=== PATIENT | female | born 1980 | race Caucasian/White ===

== ENCOUNTER 2019-10-02 13:43 | Emergency (ER) | payer SELFPAY ==
[2019-10-02 14:04] VITALS: O2SAT 99
[2019-10-02] MEDS ORDERED: IPRATROPIUM/ALBUTEROL 3 ML VIAL NEB ONE (14:32)
[2019-10-02] MEDS ORDERED: predniSONE 20 MG TAB PO ONE (14:33)
--- NOTE | 2019-10-02 14:51 | RAD ---
EXAM DESCRIPTION: Chest,2 Views CLINICAL HISTORY: 39 years Female, COUGH COMPARISON: None available. TECHNIQUE: PA and lateral radiographs of the chest were obtained. FINDINGS: Trachea is midline.The cardiomediastinal silhouette is normal in size. The pulmonary vasculature is within normal limits.The lungs are clear with no acute consolidation.No evidence of pleural effusions.No evidence of pneumothorax. IMPRESSION: No acute cardiopulmonary process. Electronically signed by: Tiffanie Fuentes MD 10/02/2019 2:50 PM [facility]
--- NOTE | 2019-10-02 16:04 | ED.PDOC ---
History of Present Illness - General Chief Complaint: Respiratory Problem Stated Complaint: cough,chest discomfort Time Seen by Provider: 10/02/19 14:31 Additional Information: Patient is a 39-year-old female who presents to the ED with chief complaint of flulike symptoms. Patient reports occasional dry cough, muscle aches, low-grade fever for the past 2 days. Patient denies shortness of breath or chest pain. She further denies nausea, vomiting, abdominal pain. Patient indicates that she has ulcerations on the inside of her lower lip and gum that are painful. These began approximately one day ago. Patient is a smoker. Patient has no other complaints at this time. - History of Present Illness Allergies/Adverse Reactions: Allergies Penicillins Allergy (Verified 10/02/19 14:04) Home Medications: Ambulatory Orders Albuterol Inhaler [Ventolin Hfa Inhaler] 2 puff INH Q4H PRN #1 inh 10/02/19 Azithromycin [Zithromax Z-Rafa] 250 mg PO DAILY #6 tab 10/02/19 Lidocaine 2% Gel [Xylocaine 2% GEL] 2 ml TOP BID PRN #1 tube 10/02/19 Prednisone 40 mg PO DAILY #10 tab 10/02/19 Review of Systems - Review of Systems Constitutional: States: no symptoms reported, chills, fever, weakness EENTM: States: nose congestion Respiratory: States: cough, wheezing. Denies: short of breath Cardiology: Denies: chest pain, palpitations Genitourinary: Denies: dysuria Musculoskeletal: States: muscle pain Skin: Denies: rash Neurological: States: no symptoms reported Endocrine: States: no symptoms reported Hematologic/Lymphatic: States: no symptoms reported All other Systems: Reviewed and Negative Past Medical History (General) - Patient Medical History Hx Stroke: No Hx Congestive Heart Failure: No Hx Diabetes: No Surgical History: no surgical history - Vaccination History Hx Influenza Vaccination: No - Social History Hx Tobacco Use: Yes - Female History Patient is a Female of Child Bearing Age (10 -59 yrs old): Yes Family Medical History - Family History Mother Family History: Unknown Living Status: Unknown Physical Exam - Physical Exam General Appearance: Alert, Comfortable, No apparent distress ENT Exam: TMs normal, pharynx normal, nasal congestion, other - occasional small ulcerations to the buccal mucosa of the mandibular gum. Neck: non-tender, full range of motion, supple, normal inspection Respiratory: chest non-tender, normal breath sounds, no respiratory distress, no accessory muscle use, wheezing - occasional, bilaterally Cardiovascular/Chest: normal peripheral pulses Gastrointestinal/Abdominal: normal bowel sounds, non tender, soft Extremity: normal inspection Neurologic: no motor/sensory deficits, alert, normal mood/affect, oriented x 3 Skin Exam: normal color, warm/dry Progress - Progress Progress: 10/02/19 16:52 Patient feeling better at this time status post albuterol treatment. Patient's flu test is negative and her chest x-ray is clear, and clinically I suspect COPD exacerbation. We'll DC with Z-Rafa, inhaler, and steroids and patient will follow-up with her PCP. Give patient topical lidocaine for her oral ulceration. Vital signs stable, patient NAD and looks clinically well, and I believe is safe for discharge with outpatient follow-up. Follow-up instructions, discharge instructions and return to ED precautions discussed with patient. Patient voices understanding and willingness to comply with instructions. All laboratory and radiographic results have been discussed with the patient, and all questions answered. Patient is happy with plan. Departure - Departure Clinical Impression: COPD exacerbation, Ulceration, oral mucosa Time of Disposition: 16:54 Disposition: Discharge to Home or Self Care Condition: Good Departure Forms: ED Discharge - Pt. Copy, Patient Portal Self Enrollment Instructions: Exacerbation of COPD (DC) Referrals: LOUANN CHONG MD [Active Staff] - 1-5 Days Prescriptions: Albuterol Inhaler [Ventolin Hfa Inhaler] 2 puff INH Q4H PRN #1 inh PRN Reason: Shortness Of Breath/Wheezing Azithromycin [Zithromax Z-Rafa] 250 mg PO DAILY #6 tab Lidocaine 2% Gel [Xylocaine 2% GEL] 2 ml TOP BID PRN #1 tube PRN Reason: Pain Prednisone 40 mg PO DAILY #10 tab Home Medications: Ambulatory Orders Albuterol Inhaler [Ventolin Hfa Inhaler] 2 puff INH Q4H PRN #1 inh 10/02/19 Azithromycin [Zithromax Z-Rafa] 250 mg PO DAILY #6 tab 10/02/19 Lidocaine 2% Gel [Xylocaine 2% GEL] 2 ml TOP BID PRN #1 tube 10/02/19 Prednisone 40 mg PO DAILY #10 tab 10/02/19
[2019-10-02] MEDS ORDERED: LIDOCAINE HCL 2% (MOUTH-THROAT) 15 ML UD MT ONE (16:31)
[2019-10-02 17:19] VITALS: BP 160/96; TEMP 98
== END 2019-10-02 17:19 | disposition home or self-care (01) ==
LOC: ER 13:43
DX: J44.9 Chronic obstructive pulmonary disease, unspecified (principal); K12.1 Other forms of stomatitis; F17.200 Nicotine dependence, unspecified, uncomplicated; Z88.0 Allergy status to penicillin
CPT/HCPCS: 71046; 87502; 94640; J7512; J7620

== ENCOUNTER 2019-11-12 10:25 | Emergency (ER) | payer SELFPAY ==
[2019-11-12] MEDS ORDERED: SODIUM CHLORIDE 0.9% (FLUSH) 10 ML SYG IV PRN (10:44)
[2019-11-12] MEDS ORDERED: ONDANSETRON INJ 4 MG/2 ML VIAL IV ONE (10:45)
[2019-11-12] MEDS ORDERED: SODIUM CHLORIDE 0.9% 1000ML 1,000 ML IVS ONE (10:45)
--- NOTE | 2019-11-12 10:50 | ED.PDOC ---
History of Present Illness - General Chief Complaint: General Stated Complaint: N/V/D HIVES AND PAIN Time Seen by Provider: 11/12/19 10:28 Source: patient - History of Present Illness Initial Comments: 39 yo female who presents with cc of lower abdominal pain. Onset 2-3 days ago, persistent, reports constant, 8/10 pain to lower abdomen, no radiation, unable to describe "just hurts", no known exacerbating/alleviating factors. Reports also frequent NBNB emesis and watery diarrhea "all day yesterday." None reported today. Also complains of what she believes is an "HPV flare." States she has some knots/bumps which have popped up on the inner wall of her vagina which are tender and painful. Also having some thin yellow vaginal discharge. Reports hx of trich in the past but no other STIs. Not currently sexually active. Denies any dysuria, hematuria, fevers, chills, cough, chest pain, dyspnea, sore throat. LMP was about 2 weeks ago. Also complains of some small red bumps which have popped up on her arms, face, and neck over past 1-2 days. They are itchy with mild swelling. Denies any hx of the same. Has not been outside. Thinks it may be an allergic reaction to something she wore. Allergies/Adverse Reactions: Allergies Penicillins Allergy (Verified 11/12/19 10:44) Home Medications: Ambulatory Orders Albuterol Inhaler [Ventolin Hfa Inhaler] 2 puff INH Q4H PRN #1 inh 10/02/19 Azithromycin [Zithromax Z-Rafa] 250 mg PO DAILY #6 tab 10/02/19 Lidocaine 2% Gel [Xylocaine 2% GEL] 2 ml TOP BID PRN #1 tube 10/02/19 Prednisone 40 mg PO DAILY #10 tab 10/02/19 Albuterol Sulfate [Proair Hfa] 2 puff INH Q4H PRN 60 Days #1 inhaler 11/12/19 Fluconazole [Diflucan Tab] 150 mg PO PRN #3 tab 11/12/19 Metronidazole 500 mg PO BID 7 Days #14 tab 11/12/19 Ondansetron Odt [Zofran ODT] 8 mg PO Q8H PRN 5 Days #10 tab 11/12/19 Prednisone 60 mg PO DAILY 4 Days #12 tab 11/12/19 Review of Systems - Review of Systems Review of Systems: 11/12/19 10:50 as per HPI All other Systems: Reviewed and Negative Past Medical History (General) - Patient Medical History Hx Stroke: No Hx Congestive Heart Failure: No Hx Diabetes: No Surgical History: no surgical history - Vaccination History Hx Tetanus, Diphtheria Vaccination: No Hx Influenza Vaccination: No Hx Pneumococcal Vaccination: No Immunizations Up to Date: No - Social History Hx Tobacco Use: Yes Hx Alcohol Use: Yes - OCC Hx Substance Use: No Hx Substance Use Treatment: No Hx Depression: No - Female History Patient is a Female of Child Bearing Age (10 -59 yrs old): Yes Family Medical History - Family History Mother Family History: Unknown Living Status: Unknown Physical Exam - Physical Exam General Appearance: Alert, Comfortable, No apparent distress Eye Exam: bilateral normal Ears, Nose, Throat: hearing grossly normal, normal ENT inspection, normal pharynx Neck: non-tender, full range of motion, supple, normal inspection Respiratory: lungs clear, normal breath sounds, no respiratory distress Cardiovascular/Chest: normal peripheral pulses, regular rate, rhythm, no edema, no murmur Peripheral Pulses: radial,right: 2+, radial,left: 2+ Gastrointestinal/Abdominal: soft, no organomegaly, tenderness - suprapubic Back Exam: normal inspection, no CVA tenderness, no vertebral tenderness Extremity: normal range of motion, non-tender, normal inspection, no pedal edema, no calf tenderness Neurologic: trencher driver II-XII nml as tested, no motor/sensory deficits, alert, normal mood/affect Skin Exam: normal color, warm/dry Progress - Progress Progress: 11/12/19 10:58 Lower abdominal pain -with n/v/d, vaginal discharge, etc... -consider UTI vs STI/PID vs trich vs BV vs yeast vs HPV/HSV vs gastroenteritis/colitis vs other -check bloodwork, GC/chlamydia, wetprep, UA, hcg -1 L NS bolus, Zofran 4 mg IV Rash -suspect contact dermatitis vs flea bites, appear very minor -will advise topical hydrocortisone and will give 5-day course of prednisone in case of urticaria 11/12/19 11:00 -Pelvic exam performed - no vaginal lesions noted. Pt did have moderate erythema to the entire cervix and possible small 7-8 mm round HPV lesion at 12 o'clock position, moderate thin white cervical discharge noted and cervical motion ttp as well as suprapubic ttp. No adnexal ttp or masses. 11/12/19 12:13 -Wetprep shows 0-1 clue cells, bacteria, neg for trich & yeast. Labs otherwise unremarkable. -will treat empirically for GC/chlamydia. Suspect yeast infection and BV as primary causes of vaginal sx's. Gastroenteritis as well. Discussed all diagnoses, treatment plan, and need for f/u given cervical erythema & hx of HPV - will need repeat pap smear as outpatient. Will give Rocephin, Azithromycin here to cover for GC/chlamydia, Diflucan for yeast, prednisone for urticaria. Send home on Flagyl 500 mg PO BID x7 days for BV, prednisone, Diflucan PRN, Zofran PRN. Slava Villegas MD Billing #[id number] 11/12/19 10:44 IV Care:Saline Lock per Protoc QSHIFT Telemetry .ONCE Sodium Chloride 0.9% (Flush) [Saline Flush Syringe] 10 ml IV PRN PRN 11/12/19 10:59 GC CHLAMYDIA RNA,TMA Stat 11/12/19 11:54 cefTRIAXone SODIUM [Rocephin] 1 gm Sodium Chl 0.9% 50Ml Min-Bag+ [NS 50ml MINI-BAG+] 50 ml IVPB ONCE Laboratory Results - last 24 hr 11/12/19 11/12/19 11/12/19 10:59 10:59 10:59 WBC 8.8 RBC 4.80 Hgb 13.7 Hct 41.3 MCV 85.9 MCH 28.5 MCHC 33.2 RDW 16.8 H Plt Count 229 MPV 10.1 Absolute Neuts (auto) 5.60 Absolute Lymphs (auto) 2.40 Absolute Monos (auto) 0.70 Absolute Eos (auto) 0.10 Absolute Basos (auto) 0.10 Neutrophils % 63.1 Lymphocytes % 27.4 Monocytes % 7.8 Eosinophils % 0.7 L Basophils % 1.0 Sodium 138 Potassium 5.1 H Chloride 105 Carbon Dioxide 24 Anion Gap 14.1 BUN 9 Creatinine 0.62 BUN/Creatinine Ratio 14.5 Random Glucose 94 Serum Osmolality 274.1 L Calcium 9.3 Total Bilirubin 0.4 AST 23 ALT 25 Alkaline Phosphatase 47 Serum Total Protein 7.4 Albumin 4.0 Globulin 3.4 Albumin/Globulin Ratio 1.2 Lipase 31 Urine Color Urine Appearance Urine pH Ur Specific Doyle Urine Protein Urine Glucose (UA) Urine Ketones Urine Blood Urine Nitrite Urine Bilirubin Urine Urobilinogen Ur Leukocyte Esterase Urine RBC Urine WBC Ur Epithelial Cells Amorphous Sediment Urine Bacteria Urine Mucus Urine HCG, Qual 11/12/19 11/12/19 10:59 10:59 WBC RBC Hgb Hct MCV MCH MCHC RDW Plt Count MPV Absolute Neuts (auto) Absolute Lymphs (auto) Absolute Monos (auto) Absolute Eos (auto) Absolute Basos (auto) Neutrophils % Lymphocytes % Monocytes % Eosinophils % Basophils % Sodium Potassium Chloride Carbon Dioxide Anion Gap BUN Creatinine BUN/Creatinine Ratio Random Glucose Serum Osmolality Calcium Total Bilirubin AST ALT Alkaline Phosphatase Serum Total Protein Albumin Globulin Albumin/Globulin Ratio Lipase Urine Color Yellow Urine Appearance Clear Urine pH 5.0 Ur Specific Doyle 1.015 Urine Protein Negative Urine Glucose (UA) Negative Urine Ketones Negative Urine Blood Negative Urine Nitrite Negative Urine Bilirubin Negative Urine Urobilinogen 0.2 Ur Leukocyte Esterase Negative Urine RBC 0 Urine WBC 0-1 Ur Epithelial Cells 3-5 Amorphous Sediment Trace Urine Bacteria Rare Urine Mucus Trace Urine HCG, Qual Negative Departure - Departure Clinical Impression: Urticaria, Bacterial vaginosis, Gastroenteritis, Candidiasis of vulva and vagina Time of Disposition: 12:00 Disposition: Discharge to Home or Self Care Condition: Good Departure Forms: ED Discharge - Pt. Copy, Patient Portal Self Enrollment, ED Discharge - Work Release Instructions: Bacterial Vaginosis (DC), Vaginal Yeast Infection (DC), Viral Gastroenteritis, Adult (DC) Diet: resume usual diet Prescriptions: Albuterol Sulfate [Proair Hfa] 2 puff INH Q4H PRN 60 Days #1 inhaler PRN Reason: Wheezing Fluconazole [Diflucan Tab] 150 mg PO PRN #3 tab Metronidazole 500 mg PO BID 7 Days #14 tab Ondansetron Odt [Zofran ODT] 8 mg PO Q8H PRN 5 Days #10 tab PRN Reason: Nausea Prednisone 60 mg PO DAILY 4 Days #12 tab Home Medications: Ambulatory Orders Albuterol Inhaler [Ventolin Hfa Inhaler] 2 puff INH Q4H PRN #1 inh 10/02/19 Azithromycin [Zithromax Z-Rafa] 250 mg PO DAILY #6 tab 10/02/19 Lidocaine 2% Gel [Xylocaine 2% GEL] 2 ml TOP BID PRN #1 tube 10/02/19 Prednisone 40 mg PO DAILY #10 tab 10/02/19 Albuterol Sulfate [Proair Hfa] 2 puff INH Q4H PRN 60 Days #1 inhaler 11/12/19 Fluconazole [Diflucan Tab] 150 mg PO PRN #3 tab 11/12/19 Metronidazole 500 mg PO BID 7 Days #14 tab 11/12/19 Ondansetron Odt [Zofran ODT] 8 mg PO Q8H PRN 5 Days #10 tab 11/12/19 Prednisone 60 mg PO DAILY 4 Days #12 tab 11/12/19 Additional Instructions: Follow up with your primary care doctor in next 1-2 weeks for repeat evaluation. Return if worsening or other concerning symptoms develop. You will need a repeat pap smear as outpatient for cervical cancer screening given history of HPV.
[2019-11-12] MEDS ORDERED: cefTRIAXone SODIUM 1 GM in SODIUM CHL 0.9% 50ML MIN-BAG+ 50 ML IVPB ONE (11:54)
[2019-11-12] MEDS ORDERED: predniSONE 20 MG TAB PO ONE (11:55)
[2019-11-12] MEDS ORDERED: AZITHROMYCIN 250 MG TAB PO ONE (11:55)
[2019-11-12] MEDS ORDERED: cefTRIAXone SODIUM 1 GM VIAL ONE (12:06)
[2019-11-12] MEDS ORDERED: SODIUM CHL 0.9% 50ML MIN-BAG+ 50 ML IVPB ONE (12:07)
[2019-11-12] MEDS ORDERED: FLUCONAZOLE 150 MG TAB PO ONE (12:09)
[2019-11-12 12:17] VITALS: BP 134/76; O2SAT 100
[2019-11-12 12:30] VITALS: TEMP 97.2
== END 2019-11-12 12:30 | disposition home or self-care (01) ==
LOC: ER 10:25
DX: K52.9 Noninfective gastroenteritis and colitis, unspecified (principal); N76.0 Acute vaginitis; B37.3 Candidiasis of vulva and vagina; L50.9 Urticaria, unspecified; Z88.0 Allergy status to penicillin; Z87.891 Personal history of nicotine dependence; Z87.42 Personal history of other diseases of the female genital tract
CPT/HCPCS: 36415; 80053; 81001; 81025; 83690; 85025; 87210; 87491; 87591; J0696; J2405; J7030; J7050; J7512; Q0144

== ENCOUNTER 2020-02-04 08:52 | Emergency (ER) | payer SELFPAY ==
--- NOTE | 2020-02-04 09:25 | ED.PDOC ---
History of Present Illness - General Chief Complaint: ENT Problem Time Seen by Provider: 02/04/20 09:19 - History of Present Illness Initial Comments: 39 yo F no significant PMH presents to ED c/o sore throat and one episode non bloody nausea vomiting diarrhea x 2 days. Has eaten today and no vomiting. Denies recent travel or contact with covid19 positive patient has no PMD for follow up denies fever chills chest pain sob diaphoresis no change in diet symptoms disturb rest no change in bladder admits drinking and smoking admits FH HTN denies FH DM no other c/o today. Allergies/Adverse Reactions: Allergies Penicillins Allergy (Verified 11/12/19 10:44) Home Medications: Ambulatory Orders Albuterol Inhaler [Ventolin Hfa Inhaler] 2 puff INH Q4H PRN #1 inh 10/02/19 Azithromycin [Zithromax Z-Rafa] 250 mg PO DAILY #6 tab 10/02/19 Lidocaine 2% Gel [Xylocaine 2% GEL] 2 ml TOP BID PRN #1 tube 10/02/19 Prednisone 40 mg PO DAILY #10 tab 10/02/19 Albuterol Sulfate [Proair Hfa] 2 puff INH Q4H PRN 60 Days #1 inhaler 11/12/19 Fluconazole [Diflucan Tab] 150 mg PO PRN #3 tab 11/12/19 Metronidazole 500 mg PO BID 7 Days #14 tab 11/12/19 Ondansetron Odt [Zofran ODT] 8 mg PO Q8H PRN 5 Days #10 tab 11/12/19 Prednisone 60 mg PO DAILY 4 Days #12 tab 11/12/19 Hydroxyzine HCl 25 mg PO Q6HR PRN #30 tab 12/14/19 predniSONE [Prednisone] 20 mg PO DAILY #14 tab 12/14/19 Acetaminophen [Tylenol] 650 mg PO Q6H PRN #30 tab 02/04/20 Azithromycin Tab [Zithromax Tab] 250 mg PO QDPC 5 Days #6 tab 02/04/20 Ibuprofen 600 mg PO Q6H PRN #20 tab 02/04/20 Prednisone 40 mg PO DAILY 5 Days #10 tab 02/04/20 Review of Systems - Review of Systems Constitutional: States: see HPI EENTM: States: see HPI Respiratory: States: see HPI Cardiology: States: see HPI Gastrointestinal/Abdominal: States: see HPI Genitourinary: States: see HPI Musculoskeletal: States: see HPI Skin: States: see HPI Neurological: States: see HPI Endocrine: States: see HPI Hematologic/Lymphatic: States: see HPI All other Systems: Reviewed and Negative Past Medical History (General) - Patient Medical History Hx Stroke: No Hx Asthma: Yes Hx Congestive Heart Failure: No Hx Diabetes: No Hx Gastroesophageal Reflux: Yes - Vaccination History Hx Tetanus, Diphtheria Vaccination: No Hx Influenza Vaccination: No Hx Pneumococcal Vaccination: No - Social History Hx Tobacco Use: Yes Hx Alcohol Use: Yes - OCC Hx Substance Use: No Hx Substance Use Treatment: No Hx Depression: No Family Medical History - Family History Mother Family History: Unknown Living Status: Unknown Physical Exam - Physical Exam General Appearance: No apparent distress Eye Exam: bilateral normal Nasal Exam: normal inspection Throat Exam: tonsillar swelling, other - erythema, speaking in full sentences handling secretions Neck: full range of motion, lymphadenopathy (R), lymphadenopathy (L) Cardiovascular/Respiratory: regular rate, rhythm Abdominal Exam: non-tender Neurologic: no motor/sensory deficits Skin Exam: normal color Progress - Progress Progress: 02/04/20 09:30 A/[id number] bolus tylenol ua uhcg cbc cmp lipase strep swab if unremarkable d/c follow up pcp tylenol ibuprofen prednisone azithromycin for the pharyngitis 02/04/20 09:42 - Results/Orders Results/Orders: 02/04/20 09:15 STREP A SCREEN CULTURE Stat 02/04/20 09:34 Sodium Chloride 0.9% 1000ML [Ns 1000 ml] 1,000 ml IVS ONCE Laboratory Results - last 24 hr 02/04/20 02/04/20 02/04/20 09:15 09:15 09:15 WBC 10.9 H RBC 4.18 L Hgb 11.9 L Hct 36.0 MCV 86.2 MCH 28.5 MCHC 33.1 RDW 14.9 H Plt Count 227 MPV 9.9 Absolute Neuts (auto) 8.10 H Absolute Lymphs (auto) 1.70 Absolute Monos (auto) 0.90 H Absolute Eos (auto) 0.10 Absolute Basos (auto) 0.10 Neutrophils % 74.0 Lymphocytes % 15.6 L Monocytes % 8.7 Eosinophils % 1.0 Basophils % 0.7 Sodium 136 Potassium 3.8 Chloride 106 Carbon Dioxide 23 Anion Gap 10.8 L BUN 8 Creatinine 0.56 L BUN/Creatinine Ratio 14.3 Random Glucose 123 H Serum Osmolality 271.7 L Calcium 8.1 L Total Bilirubin 0.3 AST 19 ALT 23 Alkaline Phosphatase 63 Serum Total Protein 6.8 Albumin 3.5 Globulin 3.3 Albumin/Globulin Ratio 1.1 Lipase Serum HCG, Qual Negative Group A Strep Rapid 02/04/20 02/04/20 09:15 09:15 WBC RBC Hgb Hct MCV MCH MCHC RDW Plt Count MPV Absolute Neuts (auto) Absolute Lymphs (auto) Absolute Monos (auto) Absolute Eos (auto) Absolute Basos (auto) Neutrophils % Lymphocytes % Monocytes % Eosinophils % Basophils % Sodium Potassium Chloride Carbon Dioxide Anion Gap BUN Creatinine BUN/Creatinine Ratio Random Glucose Serum Osmolality Calcium Total Bilirubin AST ALT Alkaline Phosphatase Serum Total Protein Albumin Globulin Albumin/Globulin Ratio Lipase 30 Serum HCG, Qual Group A Strep Rapid Negative Departure - Departure Clinical Impression: Pharyngitis Qualifiers: Pharyngitis/tonsillitis etiology: unspecified etiology Qualified Code(s): J02.9 - Acute pharyngitis, unspecified Time of Disposition: 09:56 Disposition: Discharge to Home or Self Care Condition: Good Departure Forms: ED Discharge - Pt. Copy, Patient Portal Self Enrollment Instructions: DI for Ear Pain-Adult Prescriptions: Acetaminophen [Tylenol] 650 mg PO Q6H PRN #30 tab PRN Reason: Pain Azithromycin Tab [Zithromax Tab] 250 mg PO QDPC 5 Days #6 tab Ibuprofen 600 mg PO Q6H PRN #20 tab PRN Reason: Pain Prednisone 40 mg PO DAILY 5 Days #10 tab Home Medications: Ambulatory Orders Albuterol Inhaler [Ventolin Hfa Inhaler] 2 puff INH Q4H PRN #1 inh 10/02/19 Azithromycin [Zithromax Z-Rafa] 250 mg PO DAILY #6 tab 10/02/19 Lidocaine 2% Gel [Xylocaine 2% GEL] 2 ml TOP BID PRN #1 tube 10/02/19 Prednisone 40 mg PO DAILY #10 tab 10/02/19 Albuterol Sulfate [Proair Hfa] 2 puff INH Q4H PRN 60 Days #1 inhaler 11/12/19 Fluconazole [Diflucan Tab] 150 mg PO PRN #3 tab 11/12/19 Metronidazole 500 mg PO BID 7 Days #14 tab 11/12/19 Ondansetron Odt [Zofran ODT] 8 mg PO Q8H PRN 5 Days #10 tab 11/12/19 Prednisone 60 mg PO DAILY 4 Days #12 tab 11/12/19 Hydroxyzine HCl 25 mg PO Q6HR PRN #30 tab 12/14/19 predniSONE [Prednisone] 20 mg PO DAILY #14 tab 12/14/19 Acetaminophen [Tylenol] 650 mg PO Q6H PRN #30 tab 02/04/20 Azithromycin Tab [Zithromax Tab] 250 mg PO QDPC 5 Days #6 tab 02/04/20 Ibuprofen 600 mg PO Q6H PRN #20 tab 02/04/20 Prednisone 40 mg PO DAILY 5 Days #10 tab 02/04/20
[2020-02-04] MEDS ORDERED: ACETAMINOPHEN 500 MG TAB PO ONE (09:34)
[2020-02-04] MEDS ORDERED: SODIUM CHLORIDE 0.9% 1000ML 1,000 ML IVS ONE (09:34)
[2020-02-04 09:40] VITALS: TEMP 98
[2020-02-04 19:37] VITALS: BP 132/74; O2SAT 99
== END 2020-02-04 10:20 | disposition home or self-care (01) ==
LOC: ER 08:52
DX: J02.9 Acute pharyngitis, unspecified (principal); R11.2 Nausea with vomiting, unspecified; F17.200 Nicotine dependence, unspecified, uncomplicated

== ENCOUNTER 2020-10-22 13:43 | Emergency (ER) | payer SELFPAY ==
--- NOTE | 2020-10-22 15:15 | ED.PDOC ---
History of Present Illness - General Chief Complaint: General Stated Complaint: n/v states has HPV and is having a breakout Time Seen by Provider: 10/22/20 15:12 Source: patient, RN notes reviewed, Vital Signs reviewed Additional Information: , Presents to the ER because of nausea vomiting having some suprapubic tenderness, and stated that the reason why she is having the symptoms because she has HPV, and she is having some excruciatin pain in the vaginal area, that is causing her to become very nauseated Cream and pain medications, she stated that she does have an appointment with a cork cutter but for the next month - History of Present Illness Timing/Duration: getting worse Severity: moderate Worsening Factors: nothing Associated Symptoms: nausea/vomiting Allergies/Adverse Reactions: Allergies Penicillins Allergy (Verified 11/12/19 10:44) Home Medications: Ambulatory Orders Albuterol Inhaler [Ventolin Hfa Inhaler] 2 puff INH Q4H PRN #1 inh 10/02/19 Azithromycin [Zithromax Z-Rafa] 250 mg PO DAILY #6 tab 10/02/19 Lidocaine 2% Gel [Xylocaine 2% GEL] 2 ml TOP BID PRN #1 tube 10/02/19 Prednisone 40 mg PO DAILY #10 tab 10/02/19 Albuterol Sulfate [Proair Hfa] 2 puff INH Q4H PRN 60 Days #1 inhaler 11/12/19 Fluconazole [Diflucan Tab] 150 mg PO PRN #3 tab 11/12/19 Metronidazole 500 mg PO BID 7 Days #14 tab 11/12/19 Ondansetron Odt [Zofran ODT] 8 mg PO Q8H PRN 5 Days #10 tab 11/12/19 Prednisone 60 mg PO DAILY 4 Days #12 tab 11/12/19 Hydroxyzine HCl [Hydroxyzine Hydrochloride] 25 mg PO Q6HR PRN #30 tab 12/14/19 predniSONE [Prednisone] 20 mg PO DAILY #14 tab 12/14/19 Acetaminophen [Tylenol] 650 mg PO Q6H PRN #30 tab 02/04/20 Azithromycin Tab [Zithromax Tab] 250 mg PO QDPC 5 Days #6 tab 02/04/20 Ibuprofen 600 mg PO Q6H PRN #20 tab 02/04/20 Prednisone 40 mg PO DAILY 5 Days #10 tab 02/04/20 Acetaminophen W/ Codeine [Tylenol W/ CODEINE #3] 1 ea PO Q6HRS 4 Days #20 ea 10/22/20 Ondansetron HCl [Zofran] 4 mg PO Q6HRS 5 Days #20 tab 10/22/20 Podofilox 0.5 % EX BID 3 Days #1 hortencia 10/22/20 Review of Systems - Review of Systems Constitutional: States: no symptoms reported EENTM: States: no symptoms reported Respiratory: States: no symptoms reported Cardiology: States: no symptoms reported Gastrointestinal/Abdominal: States: no symptoms reported Genitourinary: States: no symptoms reported Skin: States: no symptoms reported Neurological: States: no symptoms reported Endocrine: States: no symptoms reported Hematologic/Lymphatic: States: no symptoms reported Past Medical History (General) - Patient Medical History Hx Stroke: No Hx Asthma: Yes Hx Congestive Heart Failure: No Hx Diabetes: No Hx Gastroesophageal Reflux: Yes - Vaccination History Hx Tetanus, Diphtheria Vaccination: No Hx Influenza Vaccination: No Hx Pneumococcal Vaccination: No - Social History Hx Tobacco Use: Yes Hx Alcohol Use: Yes - OCC Hx Substance Use: No Hx Substance Use Treatment: No Hx Depression: No Family Medical History - Family History Mother Family History: Unknown Living Status: Unknown Physical Exam - Physical Exam General Appearance: Well Developed, Well Groomed, Well Hydrated, Well Nourished Eye Exam: bilateral normal Ears, Nose, Throat: hearing grossly normal, normal ENT inspection, normal pharynx Respiratory: chest non-tender, lungs clear, normal breath sounds, no respiratory distress, no accessory muscle use Cardiovascular/Chest: normal peripheral pulses, regular rate, rhythm, no edema, no gallop, no JVD, no murmur Peripheral Pulses: radial,right: 2+, radial,left: 2+ Gastrointestinal/Abdominal: normal bowel sounds, non tender, soft, no organomegaly, no pulsatile mass Extremity: normal range of motion, non-tender, normal inspection, no pedal edema, no calf tenderness Neurologic: carpenter cradle and dolly II-XII nml as tested, no motor/sensory deficits, alert, normal mood/affect, oriented x 3 Skin Exam: normal color Lymphatic: no adenopathy Progress - Progress Progress: Is having nausea vomiting abdominal pain due to excruciating pelvic pain due to HPV, patient knows that she has HPV and she has an appointment with a cork cutter, but in the meantime I will prescribe patient Tylenol, Zofran, and podofilox and patient needs to follow up with ob as soon as possible 10/22/20 15:16 Departure - Departure Clinical Impression: HPV (human papilloma virus) infection Disposition: Discharge to Home or Self Care Condition: Fair Departure Forms: ED Discharge - Pt. Copy, Patient Portal Self Enrollment Instructions: Genital Herpes, Genital Herpes (DC) Diet: resume usual diet Prescriptions: Acetaminophen W/ Codeine [Tylenol W/ CODEINE #3] 1 ea PO Q6HRS 4 Days #20 ea Ondansetron HCl [Zofran] 4 mg PO Q6HRS 5 Days #20 tab Podofilox 0.5 % EX BID 3 Days #1 hortencia Home Medications: Ambulatory Orders Albuterol Inhaler [Ventolin Hfa Inhaler] 2 puff INH Q4H PRN #1 inh 10/02/19 Azithromycin [Zithromax Z-Rafa] 250 mg PO DAILY #6 tab 10/02/19 Lidocaine 2% Gel [Xylocaine 2% GEL] 2 ml TOP BID PRN #1 tube 10/02/19 Prednisone 40 mg PO DAILY #10 tab 10/02/19 Albuterol Sulfate [Proair Hfa] 2 puff INH Q4H PRN 60 Days #1 inhaler 11/12/19 Fluconazole [Diflucan Tab] 150 mg PO PRN #3 tab 11/12/19 Metronidazole 500 mg PO BID 7 Days #14 tab 11/12/19 Ondansetron Odt [Zofran ODT] 8 mg PO Q8H PRN 5 Days #10 tab 11/12/19 Prednisone 60 mg PO DAILY 4 Days #12 tab 11/12/19 Hydroxyzine HCl [Hydroxyzine Hydrochloride] 25 mg PO Q6HR PRN #30 tab 12/14/19 predniSONE [Prednisone] 20 mg PO DAILY #14 tab 12/14/19 Acetaminophen [Tylenol] 650 mg PO Q6H PRN #30 tab 02/04/20 Azithromycin Tab [Zithromax Tab] 250 mg PO QDPC 5 Days #6 tab 02/04/20 Ibuprofen 600 mg PO Q6H PRN #20 tab 02/04/20 Prednisone 40 mg PO DAILY 5 Days #10 tab 02/04/20 Acetaminophen W/ Codeine [Tylenol W/ CODEINE #3] 1 ea PO Q6HRS 4 Days #20 ea 10/22/20 Ondansetron HCl [Zofran] 4 mg PO Q6HRS 5 Days #20 tab 10/22/20 Podofilox 0.5 % EX BID 3 Days #1 hortencia 10/22/20
[2020-10-22 15:16] VITALS: BP 178/101; TEMP 96.9; O2SAT 100
== END 2020-10-22 15:51 | disposition home or self-care (01) ==
LOC: ER 13:43
DX: A63.0 Anogenital (venereal) warts (principal); R11.2 Nausea with vomiting, unspecified; K21.9 Gastro-esophageal reflux disease without esophagitis; J45.909 Unspecified asthma, uncomplicated; Z79.899 Other long term (current) drug therapy; Z88.0 Allergy status to penicillin; Z87.891 Personal history of nicotine dependence